=== PATIENT | male | born 1960 | race Caucasian/White ===

== ENCOUNTER → 2020-09-06 | Outpatient (CLI) | payer BC, OTHER | LOC: CT 13:40 | DX: Z86.73 Personal history of transient ischemic attack (TIA), and cerebral infarction without residual deficits (principal); I10 Essential (primary) hypertension; R44.9 Unspecified symptoms and signs involving general sensations and perceptions; I65.1 Occlusion and stenosis of basilar artery; M47.022 Vertebral artery compression syndromes, cervical region | CPT/HCPCS: 70496; 70498; 82565; Q9967 ==